=== PATIENT | female | born 1995 | race Two or more races ===

== ENCOUNTER 2019-09-13 14:46 | Emergency (ER) | payer OTHER ==
[~2019-09-13] VITALS: Ht 167.6 cm; Wt 74.8 kg
[2019-09-13 15:38] VITALS: BP 113/69
[2019-09-13] MEDS ORDERED: IBUPROFEN 800 MG TAB PO ONE (16:30)
== END 2019-09-13 17:19 | disposition home or self-care (01) ==
LOC: ER 14:46
DX: S80.12XA Contusion of left lower leg, initial encounter (principal); X58.XXXA Exposure to other specified factors, initial encounter; Y93.89 Activity, other specified; Y92.89 Other specified places as the place of occurrence of the external cause; Y99.8 Other external cause status
CPT/HCPCS: 73562; 73590

== ENCOUNTER → 2021-07-02 | Outpatient (CLI) | payer MEDICAID ==
[2021-07-02 13:26] LABS: Basophils # (auto) 0 10 ^3/uL (0-0.2); Basophils % (auto) 0.5 % (0.0-2.0); Eosinophils # (auto) 0 10 ^3/uL (0-0.8); Eosinophils % (auto) 0.7 % (0.0-7.0); Hematocrit 38.9 % (36.0-46.0); Hemoglobin 13.3 g/dL (12.2-16.2); Lymphocytes # (auto) 0.8 10 ^3/uL (0.4-5.4); Lymphocytes % (auto) 11.2 % (10.0-50.0); Mean Corpuscular Hemoglobin 31.4 pg (28.0-32.0); Mean Corpuscular Hgb Conc. 34.1 g/dL (32.0-36.0); Mean Corpuscular Volume 92.2 fL (80.0-100.0); Monocytes # (auto) 0.4 10 ^3/uL (0-1.3); Monocytes % (auto) 6.1 % (0.0-12.0); Neutrophils # (auto) 5.9 10 ^3/uL (1.6-8.6); Neutrophils % (auto) 81.5 % (37.0-80.0); Nucleated Red Blood Cells % 2.1 %; Red Blood Cells 4.22 10^6/uL (4.0-5.20); Red Cell Distribution Width 13.7 % (11.8-14.3); White Blood Cell 7.3 10^3/uL (4.4-10.8)
[2021-07-03 07:07] LABS: RPR Non Reactive (Non Reactive)
== END | disposition home or self-care (01) ==
LOC: LAB 11:05
PROVIDERS: ATTEND Obstetrics & Gynecology
DX: Z34.00 Encounter for supervision of normal first pregnancy, unspecified trimester (principal); Z11.3 Encounter for screening for infections with a predominantly sexual mode of transmission
CPT/HCPCS: 36415; 84112; 85025; 86592

== ENCOUNTER 2021-07-12 08:23 | Observation (INO) | payer MEDICAID | END 2021-07-12 13:08 | disposition home or self-care (01) | LOC: LDRP 10:30 | PROVIDERS: ADMIT Obstetrics & Gynecology; ATTEND Obstetrics & Gynecology | DX: O40.3XX0 Polyhydramnios, third trimester, not applicable or unspecified (principal); O99.891 Other specified diseases and conditions complicating pregnancy; N13.30 Unspecified hydronephrosis; Z3A.34 34 weeks gestation of pregnancy | CPT/HCPCS: 59025; 76818; 81002; 94760; G0378 ==

== ENCOUNTER 2021-07-16 11:51 | Observation (INO) | payer MEDICAID ==
[2021-07-16] MEDS ORDERED: PREN27TA7 OR (13:27)
== END 2021-07-16 14:20 | disposition home or self-care (01) ==
LOC: LDRP 11:51
PROVIDERS: ADMIT Obstetrics & Gynecology; ATTEND Obstetrics & Gynecology
DX: O40.3XX0 Polyhydramnios, third trimester, not applicable or unspecified (principal); Z3A.37 37 weeks gestation of pregnancy
CPT/HCPCS: 59025; 76818; 81002; 94760; G0378

== ENCOUNTER 2021-07-19 08:30 | Observation (INO) | payer MEDICAID ==
[~2021-07-19 08:30] MED LIST: PREN27TA7 OR
== END 2021-07-19 09:50 | disposition home or self-care (01) ==
LOC: LDRP 08:30
PROVIDERS: ADMIT Obstetrics & Gynecology; ATTEND Obstetrics & Gynecology
DX: O99.891 Other specified diseases and conditions complicating pregnancy (principal); N13.30 Unspecified hydronephrosis; O40.3XX0 Polyhydramnios, third trimester, not applicable or unspecified; Z3A.37 37 weeks gestation of pregnancy
CPT/HCPCS: 59025; 76818; 81002; 94760; G0378

== ENCOUNTER 2021-07-23 07:50 | Observation (INO) | payer MEDICAID | END 2021-07-23 09:55 | disposition home or self-care (01) | LOC: LDRP 08:00 | PROVIDERS: ADMIT Obstetrics & Gynecology; ATTEND Obstetrics & Gynecology | DX: O40.3XX0 Polyhydramnios, third trimester, not applicable or unspecified (principal); O62.9 Abnormality of forces of labor, unspecified; O26.833 Pregnancy related renal disease, third trimester; N13.30 Unspecified hydronephrosis; Z3A.38 38 weeks gestation of pregnancy | CPT/HCPCS: 59025; 76818; 81002; 94760; G0378 ==

== ENCOUNTER 2021-07-26 11:26 | Observation (INO) | payer MEDICAID | END 2021-07-26 12:33 | disposition home or self-care (01) | LOC: UNDOADMOB 11:26 → LDRP 11:26 → UNDODISOB 12:33 | PROVIDERS: ADMIT Obstetrics & Gynecology; ATTEND Obstetrics & Gynecology | DX: O40.3XX0 Polyhydramnios, third trimester, not applicable or unspecified (principal); O99.891 Other specified diseases and conditions complicating pregnancy; N13.30 Unspecified hydronephrosis; Z3A.38 38 weeks gestation of pregnancy | CPT/HCPCS: 59025; 76818; 81002; 94760; G0378 ==

== ENCOUNTER 2021-08-04 08:18 | Observation (INO) | payer MEDICAID | END 2021-08-04 10:04 | disposition home or self-care (01) | LOC: LDRP 08:18 | PROVIDERS: ADMIT Obstetrics & Gynecology; ATTEND Obstetrics & Gynecology | DX: O48.0 Post-term pregnancy (principal); O40.3XX0 Polyhydramnios, third trimester, not applicable or unspecified; Z3A.40 40 weeks gestation of pregnancy | CPT/HCPCS: 59025; 76818; 81002; 94760; G0378 ==

== ENCOUNTER 2021-08-06 07:18 | Observation (INO) | payer MEDICAID | END 2021-08-06 14:05 | disposition home or self-care (01) | LOC: LDRP 10:20 → UNDOADMOB 10:20 → LDRP 10:28 → UNDODISOB 14:05 | PROVIDERS: ADMIT Obstetrics & Gynecology; ATTEND Obstetrics & Gynecology | DX: O40.3XX0 Polyhydramnios, third trimester, not applicable or unspecified (principal); O48.0 Post-term pregnancy; Z3A.40 40 weeks gestation of pregnancy | CPT/HCPCS: 59025; 76818; 81002; 94760; G0378 ==

== ENCOUNTER 2021-08-07 11:31 | Observation (INO) | payer MEDICAID | END 2021-08-07 13:24 | disposition home or self-care (01) | LOC: LDRP 11:31 → UNDOADMOB 11:31 → LDRP 12:29 → UNDODISOB 13:24 | PROVIDERS: ADMIT Obstetrics & Gynecology; ATTEND Obstetrics & Gynecology | DX: O26.893 Other specified pregnancy related conditions, third trimester (principal); R10.9 Unspecified abdominal pain; O34.63 Maternal care for abnormality of vagina, third trimester; N89.8 Other specified noninflammatory disorders of vagina; Z3A.40 40 weeks gestation of pregnancy | CPT/HCPCS: 59025; 81002; 94760; G0378 ==

== ENCOUNTER 2021-08-08 15:23 | Inpatient (IN) | payer MEDICAID ==
[~2021-08-08] VITALS: Ht 160 cm; Wt 101.2 kg
[2021-08-08] MEDS ORDERED: PHISODERM TOP SOLN 240ML BTL TOP PRN (22:15)
[2021-08-08] MEDS ORDERED: PROMETHAZINE HCL 25 MG/ML 1ML IV PRN (22:15)
[2021-08-08] MEDS ORDERED: DERMOPLAST 60ML BOTTLE TOP PRN (22:15)
[2021-08-08] MEDS ORDERED: LIDOCAINE 2%HCL (LOCAL ANESTH.) INJ 10ml MDV IJ PRN (22:15)
[2021-08-08] MEDS ORDERED: BUTORPHANOL TARTRATE 2 MG/1 ML VIAL IV PRN ×2 (22:15)
[2021-08-08 22:30] LABS: Urine Bacteria FEW /hpf (None Seen); Urine Blood Negative /uL (Negative); Urine Specific Gravity 1.002 (1.001-1.035); Urine WBC <1 /hpf (0 - 5)
[2021-08-08 22:38] LABS: Alcohol, Urine < 3.0 mg/dL (0-10); Amphetamine Screen, Urine NEGATIVE (NEGATIVE); Barbiturate Scree,Urine NEGATIVE (NEGATIVE); Benzodiazephine Screen, Urine NEGATIVE (NEGATIVE); Cannabinoid Screen, Urine NEGATIVE (NEGATIVE); Cocaine Screen, Urine NEGATIVE (NEGATIVE); Opiate Scree,Urine NEGATIVE (NEGATIVE); Phencyclidine Screen, Urine NEGATIVE (NEGATIVE)
[2021-08-08] MEDS: LACTATED RINGER'S 1,000 ML IV SCH (22:58)
[2021-08-08 23:06] LABS: Basophils # (auto) 0.2 10 ^3/uL (0-0.2); Basophils % (auto) 2.3 % (0.0-2.0); Eosinophils # (auto) 0.1 10 ^3/uL (0-0.8); Eosinophils % (auto) 1.8 % (0.0-7.0); Hematocrit 36.4 % (36.0-46.0); Hemoglobin 12.2 g/dL (12.2-16.2); Mean Corpuscular Hemoglobin 31.3 pg (28.0-32.0); Mean Corpuscular Hgb Conc. 33.4 g/dL (32.0-36.0); Mean Corpuscular Volume 93.6 fL (80.0-100.0); Monocytes # (auto) 0.5 10 ^3/uL (0-1.3); Monocytes % (auto) 6.9 % (0.0-12.0); Neutrophils # (auto) 5.3 10 ^3/uL (1.6-8.6); Red Blood Cells 3.89 10^6/uL (4.0-5.20); Red Cell Distribution Width 13.7 % (11.8-14.3)
[2021-08-08 23:24] LABS: Albumin 2.1 g/dL (3.4-5.0); BUN/Creatinine Ratio 17.6; Calcium 8.5 mg/dL (8.5-10.1)
[2021-08-08 23:27] LABS: Bilirubin, Total 0.2 mg/dL (0.2-1.0); INR 0.92 (0.9-1.15); Partial Thromboplastin Time 27.9 sec (23.6-33.0); Total Protein 5.6 g/dL (6.4-8.2)
[2021-08-09] MEDS: miSOPROStol 50 MCG per PRE-CUT 1/2 TAB PO PRN ×5 (01:13→19:07)
[2021-08-09] MEDS: LACTATED RINGER'S 1,000 ML IV SCH ×2 (09:24→15:40)
[2021-08-10] MEDS ORDERED: TERBUTALINE SULFATE 1 MG/ML 1ML VIAL SC PRN
[2021-08-10] MEDS ORDERED: LACT. RINGERS/OXYTOCIN 20UNITS 1,000 ML IV SCH
[2021-08-10] MEDS: LACTATED RINGER'S 1,000 ML IV SCH ×3 (02:32→14:15)
[2021-08-10] MEDS ORDERED: NALOXONE HCL 0.4 MG/ML VIAL IV ONE (06:00)
[2021-08-10] MEDS ORDERED: LIDOCAINE HCL 2 %PF INJ 10ML AMP IJ ONE (06:00)
[2021-08-10] MEDS ORDERED: ROPIVACAINE HCL 200 ML EPI SCH (06:00)
[2021-08-10] MEDS ORDERED: fentaNYL CITRATE 100 MCG/2 ML VL IV ONE (06:00)
[2021-08-10] MEDS ORDERED: LACTATED RINGER'S 1,000 ML IV ONE (06:00)
[2021-08-10] MEDS ORDERED: ePHEDrine SULFATE 50 MG/ML AMP IV ONE (06:00)
[2021-08-10 06:06] LABS: RPR Non Reactive (Non Reactive)
[2021-08-10] MEDS ORDERED: ONDANSETRON ODT 4 MG TAB PO PRN (12:45)
[2021-08-10] MEDS ORDERED: IBUP800T26 PO (12:50)
[2021-08-10] MEDS ORDERED: LACT. RINGERS/OXYTOCIN 20UNITS 500 ML IV ONE ×2 (13:00→13:30)
[2021-08-10 15:00] VITALS: BP 132/58
[2021-08-10] MEDS: WITCH HAZEL-GLYCERIN PAD TOP PRN (15:16)
[2021-08-10] MEDS: IBUPROFEN 800 MG TAB PO SCH (17:34)
[2021-08-10 18:50] VITALS: BP 113/71
[2021-08-10] MEDS ORDERED: DOCUSATE SOD 100 MG CAP PO SCH (22:00)
[2021-08-10 22:40] VITALS: BP 119/72
[2021-08-10] MEDS: ACETAMINOPHEN 325 MG TAB PO PRN (22:45)
[2021-08-11 02:38] VITALS: BP 109/74
[2021-08-11] MEDS: ACETAMINOPHEN 325 MG TAB PO PRN (04:52)
[2021-08-11] MEDS: IBUPROFEN 800 MG TAB PO SCH ×3 (06:05→17:14)
[2021-08-11 07:00] VITALS: BP 105/88
[2021-08-11 11:00] VITALS: BP 101/78
[2021-08-11 15:00] VITALS: BP 109/79
[2021-08-11] MEDS: WITCH HAZEL-GLYCERIN PAD TOP PRN (15:42)
== END 2021-08-11 19:50 | disposition home or self-care (01) | DRG 560 ==
LOC: LDRP 21:29 → PREOBSVTOIN 21:32 → LDRP 08-10 17:42
PROVIDERS: ADMIT Obstetrics & Gynecology; ATTEND Obstetrics & Gynecology
PROC: 3E0P7VZ Introduction of Hormone into Female Reproductive, Via Natural or Artificial Opening (ICD-10-PCS; 2021-08-09)
PROC: 3E0DXGC Introduction of Other Therapeutic Substance into Mouth and Pharynx, External Approach (ICD-10-PCS; 2021-08-09)
PROC: 10E0XZZ Delivery of Products of Conception, External Approach (ICD-10-PCS; principal; 2021-08-10)
PROC: 0KQM0ZZ Repair Perineum Muscle, Open Approach (ICD-10-PCS; 2021-08-10)
PROC: 0W8NXZZ Division of Female Perineum, External Approach (ICD-10-PCS; 2021-08-10)
DX: O48.0 Post-term pregnancy (principal); Z37.0 Single live birth; O12.04 Gestational edema, complicating childbirth; O70.1 Second degree perineal laceration during delivery; Z20.822 Contact with and (suspected) exposure to COVID-19; Z3A.40 40 weeks gestation of pregnancy
CPT/HCPCS: 36415; 59025; 59409; 62282; 76805; 80053; 80307; 81001; 81002; 85025; 85610; 85730; 86592; 86850; 86900; 86901; 94760; 94762; 96360; 96361; 96365; 96366; 96374; G0378; J2001; J2590

== ENCOUNTER 2022-03-25 21:29 | Emergency (ER) | payer MEDICAID ==
[~2022-03-25] VITALS: Ht 160 cm; Wt 91.0 kg
[2022-03-25 21:29] VITALS: BP 133/81
[~2022-03-25 21:29] MED LIST changes: +IBUP800T26 PO
== END 2022-03-26 02:31 | disposition left against medical advice (07) ==
LOC: ER 21:29
DX: R51.9 Headache, unspecified (principal); R11.0 Nausea; Z53.21 Procedure and treatment not carried out due to patient leaving prior to being seen by health care provider

== ENCOUNTER 2022-03-30 03:28 | Emergency (ER) | payer MEDICAID ==
[~2022-03-30] VITALS: Ht 160 cm; Wt 90.0 kg
[2022-03-30 03:45] VITALS: BP 130/76
== END 2022-03-30 14:38 | disposition left against medical advice (07) ==
LOC: ER 03:28 → EDBD 03:28 → ER 14:38
DX: R10.9 Unspecified abdominal pain (principal); Z53.21 Procedure and treatment not carried out due to patient leaving prior to being seen by health care provider

== ENCOUNTER 2022-09-16 18:19 | Emergency (ER) | payer MEDICAID ==
[~2022-09-16] VITALS: Ht 167.6 cm; Wt 89.0 kg
[~2022-09-16 18:19] MED LIST changes: +IBUP-1455 PO; -IBUP800T26 PO
[2022-09-16 18:54] VITALS: BP 116/67; PULSE 93; RESP 18; O2SAT 97
[2022-09-16 20:00] LABS: Urine Bacteria FEW /hpf (None Seen); Urine Blood Negative /uL (Negative); Urine Mucus FEW (None Seen); Urine Specific Gravity 1.011 (1.001-1.035); Urine WBC 7 /hpf (0 - 5)
[2022-09-16] MEDS ORDERED: ONDANSETRON ODT 4 MG TAB PO ONE (21:15)
[2022-09-16 21:28] LABS: Basophils # (auto) 0 10 ^3/uL (0-0.2); Basophils % (auto) 0.2 % (0.0-2.0); Eosinophils # (auto) 0 10 ^3/uL (0-0.8); Eosinophils % (auto) 0.5 % (0.0-7.0); Hematocrit 43.8 % (36.0-46.0); Hemoglobin 14.7 g/dL (12.2-16.2); Lymphocytes # (auto) 0.7 10 ^3/uL (0.4-5.4); Lymphocytes % (auto) 8.6 % (10.0-50.0); Mean Corpuscular Hemoglobin 31.2 pg (28.0-32.0); Mean Corpuscular Hgb Conc. 33.5 g/dL (32.0-36.0); Mean Corpuscular Volume 93.2 fL (80.0-100.0); Monocytes # (auto) 0.4 10 ^3/uL (0-1.3); Neutrophils # (auto) 6.6 10 ^3/uL (1.6-8.6); Neutrophils % (auto) 85.7 % (37.0-80.0); Red Cell Distribution Width 13.7 % (11.8-14.3); White Blood Cell 7.7 10^3/uL (4.4-10.8)
[2022-09-16 21:40] LABS: Albumin 3.2 g/dL (3.4-5.0); Calcium 9.2 mg/dL (8.5-10.1); Magnesium 2.4 mg/dL (1.6-2.6); Potassium 3.6 mmol/L (3.5-5.1)
[2022-09-16 21:44] LABS: BUN/Creatinine Ratio 6.4 (10.0-20.0); Bilirubin, Total 3.8 mg/dL (0.2-1.0); Total Protein 7.2 g/dL (6.4-8.2)
[2022-09-16] MEDS ORDERED: ZOFR4T PO (23:41)
== END 2022-09-17 00:50 | disposition left against medical advice (07) ==
LOC: ER 18:19
DX: O21.0 Mild hyperemesis gravidarum (principal); O99.611 Diseases of the digestive system complicating pregnancy, first trimester; K29.00 Acute gastritis without bleeding; R10.2 Pelvic and perineal pain; Z3A.14 14 weeks gestation of pregnancy
CPT/HCPCS: 36415; 80053; 81001; 83690; 83735; 84702; 85025

== ENCOUNTER 2023-02-24 20:10 | Observation (INO) | payer MEDICAID ==
[~2023-02-24 20:10] MED LIST changes: +ZOFR4T PO
== END 2023-02-24 22:17 | disposition home or self-care (01) ==
LOC: LDRP 20:10
PROVIDERS: ADMIT Obstetrics & Gynecology; ATTEND Obstetrics & Gynecology
DX: O26.893 Other specified pregnancy related conditions, third trimester (principal); R10.30 Lower abdominal pain, unspecified; Z3A.36 36 weeks gestation of pregnancy
CPT/HCPCS: 59025; 76815; 76817; 81002; 94760; G0378